=== PATIENT | male | born 1975 | race Asian ===

== ENCOUNTER 2017-01-12 10:00 | Outpatient (CLI) | payer OTHER | END 2017-01-12 11:30 | disposition short-term general hospital (02) | LOC: AMB 10:00 | DX: S12.100A Unspecified displaced fracture of second cervical vertebra, initial encounter for closed fracture (principal); V49.3XXA Car occupant (driver) (passenger) injured in unspecified nontraffic accident, initial encounter | CPT/HCPCS: A0425; A0429 ==

== ENCOUNTER 2017-01-12 17:29 | Outpatient (CLI) | payer OTHER | END 2017-01-12 17:39 | disposition short-term general hospital (02) | LOC: AMB 17:29 | DX: M54.2 Cervicalgia (principal); S01.81XA Laceration without foreign body of other part of head, initial encounter; V49.88XA Car occupant (driver) (passenger) injured in other specified transport accidents, initial encounter; Y92.414 Local residential or business street as the place of occurrence of the external cause | CPT/HCPCS: A0425; A0429 ==

== ENCOUNTER 2017-01-12 17:59 | Emergency (ER) | payer OTHER ==
[~2017-01-12] VITALS: Ht 180.3 cm; Wt 90.7 kg
[2017-01-12 18:54] LABS: PLATELET COUNT 210 K/uL (142-355)
[2017-01-12 19:07] LABS: POTASSIUM 2.8 mmol/L (3.6-5.2)
[2017-01-12 20:25] VITALS: BP 154/82; TEMP 98
== END 2017-01-12 21:30 | disposition short-term general hospital (02) ==
LOC: ED 17:59
DX: S12.100A Unspecified displaced fracture of second cervical vertebra, initial encounter for closed fracture (principal); V49.3XXA Car occupant (driver) (passenger) injured in unspecified nontraffic accident, initial encounter
CPT/HCPCS: 36415; 80053; 85027; 96360; 99285